=== PATIENT | female | born 1955 | race Caucasian/White ===

== ENCOUNTER 2017-08-01 19:46 | Inpatient (IN) | payer OTHER ==
[~2017-08-01] VITALS: Ht 160 cm; Wt 66.8 kg
--- NOTE | ~2017-08-01 | CN ---
Consultation Report [facility] [address] [place]. [address] NAME: JODIE MARK : 57 STATUS : ADM IN [facility]#: [id number] AGE: 62 ADM/REG DATE : 08/02/17 MR#: [id number] REPORT SERV DATE: 08/03/17 DICTATED BY: RICHARD SPAIN DATE: 08/03/17 REPORT STATUS : Draft TRANSCRIBED BY: MODL DATE: 08/03/17 CONSULTATION DATE OF CONSULTATION: 08/03/2017 HISTORY OF PRESENT ILLNESS: The patient is a 62-year-old woman, who presents to the hospital after having a fall and she has also been complaining of abdominal pains with nausea and vomiting. She had just gotten out of [facility] in [place] and she has history of alcohol abuse, drinking about a case of beer a day, but she says it is only on weekends, but probably more often than that. She denies any hematemesis or coffee-grounds emesis. She denies any melena or bright red blood per the rectum. PAST MEDICAL HISTORY: Pertinent for alcohol abuse, high blood pressure, and acute renal failure. MEDICATIONS: Her medicines are as outlined on her home medicine sheet and as listed in her MAR. ALLERGIES: SHE IS ALLERGIC TO SEROQUEL. SOCIAL HISTORY: She used to smoke a pack cigarettes a day. Quit 3 months ago and drinks alcohol as above. PHYSICAL EXAMINATION: GENERAL: She is a well-developed, well-nourished woman in no acute distress. VITAL SIGNS: Her temperature is 97.8, pulse is 87, respirations 16, blood pressure is 166/91. HEENT: Unremarkable. LUNGS: Showed decreased breath sounds, otherwise clear. HEART: Tachycardic. ABDOMEN: Showed normoactive bowel sounds. Soft, with tenderness in the midepigastrium and right upper quadrant. LABORATORY DATA: Shows a white count of 5.6, hemoglobin 10.8, hematocrit 30.6, RDW 16.6, platelet count 310,000. This is after she received 2 units of blood for hemoglobin of about 6. Her sodium is 138, potassium 4.6, chloride 112, CO2 17, BUN 10, creatinine 1.54, glucose 71, total protein 0.3, alkaline phosphatase 203, ALT 17, AST 20, lipase is 518 and her CA-19 9 is 47.5, mildly higher than what it should be. IMPRESSION: This is a 62-year-old woman, who has a history of alcohol abuse, presents with pancreatitis probably secondary to the alcohol usage. We will use supportive care and start her on Protonix twice a day as she is having some reflux symptoms and we will see if she is having any signs of GI bleeding and see if her stools are Hemoccult positive. Consultation Report [place] [address] [place]. [address] NAME: JODIE MARK : 57 STATUS : ADM IN PAT#: [id number] AGE: 62 ADM/REG DATE : 08/02/17 MR#: [id number] REPORT SERV DATE: 08/03/17 DICTATED BY: RICHARD SPAIN DATE: 08/03/17 REPORT STATUS : Draft TRANSCRIBED BY: NISA DATE: 08/03/17 ONEYDA/NISA Richard Spain M.D. / [id number] CC: Burton Estes
--- NOTE | ~2017-08-01 | DS ---
Discharge Summary [facility] [address] [place]. [address] NAME: JODIE MARK : 57 STATUS : DIS IN PAT#: [id number] AGE: 62 ADM/REG DATE : 08/02/17 MR#: [id number] REPORT SERV DATE: 08/05/17 DICTATED BY: BURTON GARCIA DATE: 08/05/17 REPORT STATUS : Draft TRANSCRIBED BY: MODL DATE: 08/05/17 ADMISSION DATE: 08/02/2017 DISCHARGE DATE: 08/05/2017 DISCHARGE DIAGNOSES: 1. Acute on chronic pancreatitis with pancreatic pseudocyst. 2. Anemia, requiring 2 units of packed red blood cells, without developing a gastrointestinal bleed. 3. Alcohol and tobacco abuse. 4. History of overdoses. 5. Urinary tract infection, treated with one dose of Rocephin. 6. Chronic weaknesses, requiring physical therapy at home. CONSULTANTS: GI. PROCEDURES: None. HOSPITAL COURSE: This is a 62-year-old lady who was admitted to the hospital with acute abdominal pain. The patient was diagnosed with acute on chronic pancreatitis. For details, please refer to excellent H and P dictated by Dr. Abby Morrell. In summary, the patient was admitted and was given supportive care with IV fluids and pain control. By the second day of the hospital stay, the patient had dropped her hemoglobin from 8 to 6 without any evidence of bleeding. At that point in time, the patient was given 2 units of PRBCs and GI consultation was requested. Since then, the patient has never really developed any further decline in hemoglobin and she has never had any bloody bowel movement and thus the patient did not require any endoscopic evaluation. Throughout the hospital stay patient show steady improvement in her symptoms. The patient began to tolerate p.o. intake well. The patient is now being discharged to home in stable condition to be followed closely as an outpatient. Of note, the patient was found to have slightly elevated CA-19-9 level, which will be followed by Dr. Gary in the office. DISPOSITION: Home with home health. DISCHARGE MEDICATIONS: No changes. FOLLOWUP: 1. Please follow up with Dr. Gary in the next two to three weeks. 2. Please follow up with PCP in the next two to three weeks. A total of 35 minutes spent in coordinating this patient's discharge today. Louise/MODL Discharge Summary [place] [address] [place]. [address] NAME: JODIE MARK : 57 STATUS : DIS IN PAT#: [id number] AGE: 62 ADM/REG DATE : 08/02/17 MR#: [id number] REPORT SERV DATE: 08/05/17 DICTATED BY: BURTON GARCIA DATE: 08/05/17 REPORT STATUS : Draft TRANSCRIBED BY: MODBabs DATE: 08/05/17 Burton Garcia MD / [id number] CC: MD Franklyn Coronado M.D.
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
[2017-08-01 21:43] LABS: BASOPHILS 0.3 %; BASOPHILS ABSOLUTE 0.03 10/3/uL (0.0-0.16); EOSINOPHILS 4.2 %; EOSINOPHILS ABSOLUTE 0.46 10/3/uL (0.0-0.53); ER CBC TAT 0 Hrs 07 Mins; HEMATOCRIT 26.8 % (36.0-48.0); HEMOGLOBIN 8.5 g/dL (12.0-16.0); IMMATURE GRANULOCYTES 0.6 %; IMMATURE GRANULOCYTES ABSOLUTE 0.07 10/3/uL (0.0-0.11); LYMPHOCYTES 24.7 %; LYMPHOCYTES ABSOLUTE 2.71 10/3/uL (0.67-4.30); MEAN CORPUS HGB CONC 31.7 g/dL (32.0-36.0); MEAN CORPUSCULAR HEMOGLOB 32.1 pg (26.0-34.0); MEAN CORPUSCULAR VOLUME 101.1 fL (80-100); MEAN PLATELET VOLUME 8.1 fL (9.2-13.0); MONOCYTES 8.7 %; MONOCYTES ABSOLUTE 0.95 10/3/uL (0.21-1.20); NEUTROPHILS 61.5 %; NEUTROPHILS ABSOLUTE 6.74 10/3/uL (2.02-8.40); RBC DISTRIBUTION WIDTH 13.8 % (12.0-16.0); RED CELL COUNT 2.65 10/6/uL (4.0-5.6)
[2017-08-01 21:44] LABS: MANUAL DIFF NO %; PLATELET COUNT 713 10/3/uL (150-400)
[2017-08-01 22:04] LABS: ALBUMIN 2.1 G/DL (3.5-5.0); CALCIUM, SERUM 8.7 MG/DL (8.5-10.4); CHLORIDE, SERUM 107 MMOL/L (96-112); CREATININE 1.83 MG/DL (0.55-1.02); GFR AFRICAN AMERICAN 34 ML/MIN (>=60); GFR NON AFRICAN AMERICAN 29 ML/MIN (>=60); GLUCOSE, SERUM 95 MG/DL (60-99); POTASSIUM, SERUM 3.2 MMOL/L (3.5-5.3); SGOT(AST) 24 U/L (5-40); SGPT(ALT) 26 U/L (5-65); SODIUM, SERUM 138 MMOL/L (135-148); TOTAL BILIRUBIN 0.5 MG/DL (0-1.2)
[2017-08-01 22:05] LABS: A/G RATIO 0.4 (0.7-1.9); ALKALINE PHOSPHATASE 281 U/L (45-117); BUN (BLOOD UREA NITROGEN) 12 MG/DL (6-23); CO2 (CARBON DIOXIDE) 19 MMOL/L (24-34); GLOBULIN 5.1 G/DL (2.5-4.1); TOTAL PROTEIN 7.2 G/DL (6.0-8.5)
[2017-08-01] MEDS ORDERED: ZANTAC 150 PO (22:14)
[2017-08-01] MEDS ORDERED: ATV.5 PO (22:15)
[2017-08-01] MEDS ORDERED: PAXIL30 MG PO (22:16)
[2017-08-01] MEDS ORDERED: VITD PO (22:16)
[2017-08-01] MEDS ORDERED: [UNRECOGNIZED DRUG - OTHER] PO (22:16)
[2017-08-01] MEDS ORDERED: EFFER K 20 MEQ PO (22:17)
[2017-08-01 23:06] LABS: ASCORBIC ACID (UR NOT ORDER) NEG (NEG); BILIRUBIN, URINE NEGATIVE (NEG); ER URINALYSIS TAT 0 Hrs 11 Mins; KETONE, URINE NEGATIVE (NEG); LEUKOCYTE ESTERASE(NOT OR SMALL (NEG); NITRITE (URINE) NEG (NEG); WBC (NOT ORDERED) (RFLEX) 12 (0-5)
[2017-08-01 23:49] LABS: INTERNATIONAL NORMAL RATI 1.4 UNITS (-); PARTIAL THROMBO TIME 34.7 SEC (22.5-37.2); PROTIME (NOT ORD) 16.8 SEC (12.0-14.5)
[2017-08-01 23:57] LABS: LACTATE 1.1 MMOL/L (0.3-2.4)
[2017-08-02 07:25] LABS: A/G RATIO 0.5 (0.7-1.9); ALBUMIN 1.6 G/DL (3.5-5.0); ALKALINE PHOSPHATASE 202 U/L (45-117); BUN (BLOOD UREA NITROGEN) 12 MG/DL (6-23); CHLORIDE, SERUM 110 MMOL/L (96-112); CO2 (CARBON DIOXIDE) 19 MMOL/L (24-34); CREATININE 1.65 MG/DL (0.55-1.02); GFR AFRICAN AMERICAN 38 ML/MIN (>=60); GFR NON AFRICAN AMERICAN 33 ML/MIN (>=60); GLOBULIN 3.5 G/DL (2.5-4.1); GLUCOSE, SERUM 88 MG/DL (60-99); POTASSIUM, SERUM 3.7 MMOL/L (3.5-5.3); SGOT(AST) 20 U/L (5-40); SGPT(ALT) 20 U/L (5-65); SODIUM, SERUM 138 MMOL/L (135-148); TOTAL BILIRUBIN 0.2 MG/DL (0-1.2); TOTAL PROTEIN 5.1 G/DL (6.0-8.5)
[2017-08-02 07:36] LABS: BASOPHILS 0.3 %; BASOPHILS ABSOLUTE 0.02 10/3/uL (0.0-0.16); EOSINOPHILS 4.7 %; EOSINOPHILS ABSOLUTE 0.33 10/3/uL (0.0-0.53); IMMATURE GRANULOCYTES 0.4 %; IMMATURE GRANULOCYTES ABSOLUTE 0.03 10/3/uL (0.0-0.11); LYMPHOCYTES 28.2 %; LYMPHOCYTES ABSOLUTE 1.98 10/3/uL (0.67-4.30); MEAN CORPUS HGB CONC 31.8 g/dL (32.0-36.0); MEAN CORPUSCULAR HEMOGLOB 32.2 pg (26.0-34.0); MEAN PLATELET VOLUME 7.7 fL (9.2-13.0); MONOCYTES 11.1 %; MONOCYTES ABSOLUTE 0.78 10/3/uL (0.21-1.20); NEUTROPHILS 55.3 %; NEUTROPHILS ABSOLUTE 3.87 10/3/uL (2.02-8.40); RBC DISTRIBUTION WIDTH 13.8 % (12.0-16.0)
[2017-08-02 07:37] LABS: HEMATOCRIT 20.1 % (36.0-48.0); HEMOGLOBIN 6.4 g/dL (12.0-16.0); PLATELET COUNT 383 10/3/uL (150-400); RED CELL COUNT 1.99 10/6/uL (4.0-5.6)
[2017-08-02 07:38] LABS: MANUAL DIFF NO %
[2017-08-02 15:36] LABS: HEMATOCRIT 20.8 % (36.0-48.0); HEMOGLOBIN 6.7 g/dL (12.0-16.0)
[2017-08-03 00:03] LABS: HEMATOCRIT 28.6 % (36.0-48.0); HEMOGLOBIN 9.3 g/dL (12.0-16.0)
[2017-08-03 05:46] LABS: BASOPHILS 0.4 %; BASOPHILS ABSOLUTE 0.02 10/3/uL (0.0-0.16); EOSINOPHILS 6.7 %; EOSINOPHILS ABSOLUTE 0.38 10/3/uL (0.0-0.53); HEMATOCRIT 30.6 % (36.0-48.0); IMMATURE GRANULOCYTES 0.5 %; IMMATURE GRANULOCYTES ABSOLUTE 0.03 10/3/uL (0.0-0.11); LYMPHOCYTES 22.9 %; LYMPHOCYTES ABSOLUTE 1.29 10/3/uL (0.67-4.30); MEAN CORPUS HGB CONC 32.7 g/dL (32.0-36.0); MEAN CORPUSCULAR HEMOGLOB 31.4 pg (26.0-34.0); MEAN CORPUSCULAR VOLUME 96.2 fL (80-100); MONOCYTES 12.8 %; MONOCYTES ABSOLUTE 0.72 10/3/uL (0.21-1.20); NEUTROPHILS 56.7 %; NEUTROPHILS ABSOLUTE 3.19 10/3/uL (2.02-8.40); PLATELET COUNT 310 10/3/uL (150-400); RBC DISTRIBUTION WIDTH 16.6 % (12.0-16.0); RED CELL COUNT 3.18 10/6/uL (4.0-5.6); WHITE BLOOD CELLS 5.6 10/3/uL (4.5-10.5)
[2017-08-03 05:47] LABS: MANUAL DIFF NO %
[2017-08-03 06:04] LABS: A/G RATIO 0.5 (0.7-1.9); ALBUMIN 1.6 G/DL (3.5-5.0); ALKALINE PHOSPHATASE 203 U/L (45-117); BUN (BLOOD UREA NITROGEN) 10 MG/DL (6-23); CA-19-9 47.5 U/ML (< 37.0); CALCIUM, SERUM 8.4 MG/DL (8.5-10.4); CHLORIDE, SERUM 112 MMOL/L (96-112); CO2 (CARBON DIOXIDE) 17 MMOL/L (24-34); CREATININE 1.54 MG/DL (0.55-1.02); GFR AFRICAN AMERICAN 42 ML/MIN (>=60); GFR NON AFRICAN AMERICAN 36 ML/MIN (>=60); GLOBULIN 3.4 G/DL (2.5-4.1); GLUCOSE, SERUM 71 MG/DL (60-99); SGOT(AST) 20 U/L (5-40); SGPT(ALT) 17 U/L (5-65); SODIUM, SERUM 138 MMOL/L (135-148); TOTAL BILIRUBIN 0.3 MG/DL (0-1.2)
[2017-08-03 06:06] LABS: POTASSIUM, SERUM 4.6 MMOL/L (3.5-5.3)
[2017-08-03 09:23] LABS: HEMATOCRIT 30.7 % (36.0-48.0); HEMOGLOBIN 10.2 g/dL (12.0-16.0)
[2017-08-04 08:27] LABS: BASOPHILS 0.2 %; BASOPHILS ABSOLUTE 0.01 10/3/uL (0.0-0.16); EOSINOPHILS 4.5 %; EOSINOPHILS ABSOLUTE 0.27 10/3/uL (0.0-0.53); HEMATOCRIT 30.2 % (36.0-48.0); HEMOGLOBIN 10.1 g/dL (12.0-16.0); IMMATURE GRANULOCYTES 0.5 %; IMMATURE GRANULOCYTES ABSOLUTE 0.03 10/3/uL (0.0-0.11); LYMPHOCYTES 15.4 %; LYMPHOCYTES ABSOLUTE 0.93 10/3/uL (0.67-4.30); MANUAL DIFF NO %; MEAN CORPUS HGB CONC 33.4 g/dL (32.0-36.0); MEAN CORPUSCULAR HEMOGLOB 31.9 pg (26.0-34.0); MEAN CORPUSCULAR VOLUME 95.3 fL (80-100); MONOCYTES 7.5 %; MONOCYTES ABSOLUTE 0.45 10/3/uL (0.21-1.20); NEUTROPHILS 71.9 %; NEUTROPHILS ABSOLUTE 4.34 10/3/uL (2.02-8.40); PLATELET COUNT 288 10/3/uL (150-400); RBC DISTRIBUTION WIDTH 16.5 % (12.0-16.0); RED CELL COUNT 3.17 10/6/uL (4.0-5.6)
[2017-08-04 08:36] LABS: BUN (BLOOD UREA NITROGEN) 7 MG/DL (6-23); CALCIUM, SERUM 7.9 MG/DL (8.5-10.4); CHLORIDE, SERUM 114 MMOL/L (96-112); CO2 (CARBON DIOXIDE) 18 MMOL/L (24-34); CREATININE 1.56 MG/DL (0.55-1.02); GFR AFRICAN AMERICAN 41 ML/MIN (>=60); GFR NON AFRICAN AMERICAN 35 ML/MIN (>=60); GLUCOSE, SERUM 83 MG/DL (60-99); POTASSIUM, SERUM 4.6 MMOL/L (3.5-5.3); SODIUM, SERUM 140 MMOL/L (135-148)
[2017-08-05 06:49] LABS: BASOPHILS 0.2 %; BASOPHILS ABSOLUTE 0.01 10/3/uL (0.0-0.16); EOSINOPHILS 3.7 %; EOSINOPHILS ABSOLUTE 0.24 10/3/uL (0.0-0.53); HEMATOCRIT 29.5 % (36.0-48.0); HEMOGLOBIN 9.5 g/dL (12.0-16.0); IMMATURE GRANULOCYTES 0.3 %; IMMATURE GRANULOCYTES ABSOLUTE 0.02 10/3/uL (0.0-0.11); LYMPHOCYTES 20.8 %; LYMPHOCYTES ABSOLUTE 1.35 10/3/uL (0.67-4.30); MEAN CORPUS HGB CONC 32.2 g/dL (32.0-36.0); MEAN CORPUSCULAR VOLUME 96.4 fL (80-100); MONOCYTES ABSOLUTE 0.52 10/3/uL (0.21-1.20); NEUTROPHILS ABSOLUTE 4.34 10/3/uL (2.02-8.40); PLATELET COUNT 254 10/3/uL (150-400); RBC DISTRIBUTION WIDTH 16.2 % (12.0-16.0); RED CELL COUNT 3.06 10/6/uL (4.0-5.6); WHITE BLOOD CELLS 6.5 10/3/uL (4.5-10.5)
[2017-08-05 06:51] LABS: MANUAL DIFF NO %
[2017-08-05 07:05] LABS: ALBUMIN 1.4 G/DL (3.5-5.0); ALKALINE PHOSPHATASE 206 U/L (45-117); BUN (BLOOD UREA NITROGEN) 7 MG/DL (6-23); CHLORIDE, SERUM 112 MMOL/L (96-112); CO2 (CARBON DIOXIDE) 18 MMOL/L (24-34); CREATININE 1.61 MG/DL (0.55-1.02); DIRECT BILIRUBIN 0.1 MG/DL (0.0-0.4); GFR AFRICAN AMERICAN 40 ML/MIN (>=60); GFR NON AFRICAN AMERICAN 34 ML/MIN (>=60); GLUCOSE, SERUM 103 MG/DL (60-99); INDIRECT BILIRUBIN(NOT ORDER) 0.8 MG/DL (0.1-0.9); POTASSIUM, SERUM 4.6 MMOL/L (3.5-5.3); SGOT(AST) 20 U/L (5-40); SGPT(ALT) 14 U/L (5-65); SODIUM, SERUM 140 MMOL/L (135-148); TOTAL BILIRUBIN 0.9 MG/DL (0-1.2)
[2017-08-05] MEDS ORDERED: HYDROCHLOROT25 MG (10:56)
== END 2017-08-05 16:44 | disposition home health service (06) | DRG 439 ==
LOC: ER 19:46 → 6NO 08-02 00:47
PROVIDERS: Internal Medicine; Internal Medicine Gastroenterology; Nurse Practitioner Acute Care; Specialist
PROC: 30233N1 Transfusion of Nonautologous Red Blood Cells into Peripheral Vein, Percutaneous Approach (ICD-10-PCS; principal; 2017-08-02)
DX: K85.20 Alcohol induced acute pancreatitis without necrosis or infection (principal); N39.0 Urinary tract infection, site not specified; K86.3 Pseudocyst of pancreas; K86.0 Alcohol-induced chronic pancreatitis; D64.9 Anemia, unspecified; F10.10 Alcohol abuse, uncomplicated; F17.210 Nicotine dependence, cigarettes, uncomplicated; R53.1 Weakness
CPT/HCPCS: 36415; 74176; 80048; 80053; 80076; 81001; 82150; 82272; 83605; 83690; 83735; 85014; 85018; 85025; 85610; 85730; 86301; 86850; 86900; 86901; 86920; 87077; 87086; 87186; 96374; 97162-GP; 99285; A9270-GY; C9113; J1170; J2405; J3411; J3475; J3480; P9016